=== PATIENT | female | born 1970 ===

== ENCOUNTER 2017-08-29 05:49 | Day surgery (SDC) | payer OTHER ==
[~2017-08-29 05:49] MED LIST: PROPRANOLOL HCL40 MG PO
[2017-08-29] MEDS ORDERED: PERCOCET 5-3251 EACH PO (08:42)
== END 2017-08-29 10:35 | disposition home or self-care (01) ==
LOC: CIR.AMB 05:49
DX: E06.3 Autoimmune thyroiditis (principal)